=== PATIENT | female | born 1965 | race Caucasian/White ===

== ENCOUNTER 2018-06-25 13:00 | Emergency (ER) | payer BC ==
--- NOTE | 2018-06-25 13:50 | EDM.PDOC ---
ED HPI GENERAL MEDICAL PROBLEM - General Chief Complaint: Abdominal Pain Stated Complaint: SENT FROM CLINIC Time Seen by Provider: 06/25/18 13:45 Source of Information: Reports: Patient History Limitations: Reports: No Limitations - History of Present Illness INITIAL COMMENTS - FREE TEXT/NARRATIVE: Sent from [facility] for constipation. Labs unremarkable today at clinic. Last BM 6 days ago. Complains of nausea and low abdominal pain x 3 days. Previous h/o cholecystecomy, no h/o SBO. Denies history of cancer. Has had mid back pain x 2 months with intermittent right thigh tingling x 1 week (no tingling now). Denies loss of bowel or bladder control. Denies leg weakness. Onset Date: 06/22/18 Location: Reports: Abdomen Severity: Mild - Related Data Allergies Allergy/AdvReac Type Severity Reaction Status Date / Time No Known Allergies Allergy Verified 06/25/18 13:19 Home Meds: Home Meds Cyclobenzaprine HCl 10 mg PO DAILY PRN 06/25/18 [History] Naproxen Sodium [Aleve] 440 mg PO DAILY PRN 06/25/18 [History] Polyethylene Glycol 3350 [MiraLAX] 17 gm PO DAILY PRN 06/25/18 [History] Past Medical History Cardiovascular History: Reports: None Respiratory History: Reports: None Gastrointestinal History: Reports: Chronic Constipation MOUNTER SOUSAPHONES History: Reports: Endometrial Ablation, Other (See Below) ( Postmenopausal x 3 years) - Past Surgical History GI Surgical History: Reports: Cholecystectomy. Denies: Appendectomy Female Surgical History: Reports: Other (See Below) (Endometrial ablation) Social & Family History - Tobacco Use Smoking Status *Q: Former Smoker Tobacco Use Within Last Twelve Months: No - Caffeine Use Caffeine Use: Reports: None - Alcohol Use Alcohol Use History: Yes Alcohol Use Frequency: Rarely - Recreational Drug Use Recreational Drug Use: No ED ROS GENERAL - Review of Systems Review Of Systems: ROS reveals no pertinent complaints other than HPI. ED EXAM, GI/ABD - Physical Exam Exam: See Below Exam Limited By: No Limitations General Appearance: Alert, WD/WN, No Apparent Distress Nose: Normal Inspection Throat/Mouth: No Airway Compromise Head: Atraumatic, Normocephalic Neck: Full Range of Motion Respiratory/Chest: No Respiratory Distress, Lungs Clear, Normal Breath Sounds, Other (No palpable breast masses) Cardiovascular: Regular Rate, Rhythm, No Murmur GI/Abdominal Exam: Normal Bowel Sounds, Soft, Tender (mild lower and LUQ) Extremities: Normal Range of Motion Neurological: Alert, Normal Gait, No Motor/Sensory Deficits, Other (downgoing plantar reflexes bilaterally) Skin Exam: Warm, Dry, Intact Course - Vital Signs Last Recorded V/S: Last Vital Signs Temp 36.3 C 06/25/18 13:08 Pulse 75 06/25/18 13:08 Resp 20 06/25/18 13:08 BP 159/97 H 06/25/18 13:08 Pulse Ox 97 06/25/18 13:08 - Orders/Labs/Meds Orders: Active Orders 24 hr Category Date Time Status Sodium Chloride 0.9% [Saline Flush] Med 06/25/18 15:55 Active 10 ml FLUSH ASDIRECTED PRN Saline Lock Insert [OM.PC] Routine Oth 06/25/18 15:55 Ordered Medication Orders Sodium Chloride (Saline Flush) 10 ml FLUSH ASDIRECTED PRN PRN Reason: Keep Vein Open Meds: Medications Generic Name Dose Route Start Last Admin Trade Name Freq PRN Reason Stop Dose Admin Sodium Chloride 10 ml 06/25/18 15:55 Saline Flush FLUSH ASDIRECTED PRN Keep Vein Open Discontinued Medications Generic Name Dose Route Start Last Admin Trade Name Freq PRN Reason Stop Dose Admin Hydromorphone HCl 1 mg 06/25/18 15:55 06/25/18 16:12 Dilaudid IVPUSH 06/25/18 15:56 1 mg ONETIME ONE Administration Ondansetron HCl 4 mg 06/25/18 15:55 06/25/18 16:11 Zofran IVPUSH 06/25/18 15:56 4 mg ONETIME ONE Administration - Radiology Interpretation Free Text/Narrative:: CT Abd/Pelvis w/o contrast: T10 vertebral body and posterior elements show evidence of severe lytic destructive bony disease. There is a high density abnormality within the spinal canal additionally. Pelvic lytic lesions. - Re-Assessments/Exams Free Text/Narrative Re-Assessment/Exam: 06/25/18 13:50 Labs 06/25/18 @ [facility]: CBC: unremarkable Chem 14: glucose 113, Ca 10.4, ALP 145, otherwise unremarkable 06/25/18 16:[address] Prabhakar ([facility]), recommends TLSO brace and oncology work up. [facility] does not stock TLSO braces. 06/25/18 16:36 Dr. Walters (Hospitalist) accepts patient for transfer to [facility]. 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 Constipation Qualifiers: Constipation type: unspecified constipation type Qualified Code(s): K59.00 - Constipation, unspecified - Discharge Information *PRESCRIPTION DRUG MONITORING PROGRAM REVIEWED*: No *COPY OF PRESCRIPTION DRUG MONITORING REPORT IN PATIENT TODD: Not Applicable Referrals: Sandra Elena NP [Ordering Only Provider] - Forms: ED Department Discharge - My Orders Last 24 Hours: My Active Orders 06/25/18 15:55 Sodium Chloride 0.9% [Saline Flush] 10 ml FLUSH ASDIRECTED PRN Saline Lock Insert [OM.PC] Routine - Assessment/Plan Last 24 Hours: My Active Orders 06/25/18 15:55 Sodium Chloride 0.9% [Saline Flush] 10 ml FLUSH ASDIRECTED PRN Saline Lock Insert [OM.PC] Routine
--- NOTE | 2018-06-25 15:16 | CT ---
INDICATION: Abdominal pain, constipation - pain since Monday of last week in left lower quadrant, less in right lower quadrant. CT ABDOMEN AND PELVIS WITHOUT CONTRAST: Spiral 1.25 mm axial sections were obtained through the abdomen and pelvis without contrast, with sagittal and coronal reconstructions, 06/25/2018 - no comparisons. Total exam DLP = 1,359.47 mGy-cm. The lower lung soni and pleural spaces visualized showed no evidence of a definite active infiltrate or effusion. There are some fibrotic appearing stands at the lower lobes and lingula, however. The heart did not appear enlarged. No pericardial effusion was seen. The gallbladder was absent, compatible with history of its removal. The common bile duct was normal in caliber. The liver, spleen, adrenals, and kidneys were normal in appearance. The appendix appeared normal, visualized on coronal images #31 through #35 and axial images #199 through #222. No evidence of bowel obstruction or free air was seen. The urinary bladder was unremarkable. No definite uterine mass is seen. There is what appears to be a physiologic cyst posteriorly at the left ovary, measuring approximately 22 mm. Ultrasound of the pelvis in 2 or 6 weeks may be helpful to exclude other than benign disease in that area. No definite retroperitoneal mass was seen. Degenerative changes and disk disease are noted at L5-S1. At the T10 vertebral body, there is a destructive lesion of lytic nature with loss of much of the substance of the posterior elements and the T10 vertebral body. Malignancy is highly suspected with this appearance. Additional examination is warranted, such as MRI and possibly nuclear bony imaging. Two areas of lytic change are noted in the ischium on the right, one relatively small and oval and one extending to the confines of the cortex of the ischium in that area with fractures through the cortices. These lytic areas are most likely on the basis of metastatic disease. The more inferior posterior lytic area extends into the inferior pubic ramus posteriorly on the right. IMPRESSION: 1. T10 vertebral body and posterior elements show evidence of severe lytic destructive bony disease. There appears to be high density abnormality within the spinal canal additionally. Further workup is recommended: MRI, nuclear bone imaging, etc. Appearance of a lytic lesion is noted posterior to the right acetabulum, which measures approximately 18 mm on axial image #278 and is well-visualized also on sagittal image #27. This could represent metastatic deposit or possibly unusual subchondral cystic change.Just inferior to the last lesion, a much larger area of bony destruction is noted with fractures of the cortex involving the right ischium with a lytic lesion, which measures at least 68 mm. This more strongly suggests metastatic disease process of lytic nature. 2. Degenerative changes and disk disease L5-S1. 3. Post cholecystectomy. Report was called to Dr. Short at 1452 hours on 06/25/2018. [facility]
[2018-06-25] MEDS ORDERED: HYDROmorphone 2 MG/ML SDV IVPUSH ONE (15:55)
[2018-06-25] MEDS ORDERED: Ondansetron 4 MG/2 ML SDV IVPUSH ONE ×2 (15:55→17:13)
[2018-06-25] MEDS ORDERED: Sodium Chloride 0.9% 10 ML Syringe FLUSH PRN (15:55)
[2018-06-25 16:35] VITALS: BP 112/78
== END 2018-06-25 17:55 ==
LOC: SUPCPDRO 13:00 → FB.ED 13:00
DX: K59.00 Constipation, unspecified (principal); C79.89 Secondary malignant neoplasm of other specified sites; C79.51 Secondary malignant neoplasm of bone; Z87.891 Personal history of nicotine dependence
CPT/HCPCS: 74176; 96374; 96375; 99285; J1170; J2405